=== PATIENT | male | born 1975 | race Caucasian/White ===

== ENCOUNTER 2017-12-24 14:42 | Inpatient (IN) | payer OTHER ==
[~2017-12-24] VITALS: Ht 180.3 cm; Wt 89.0 kg
--- NOTE | 2017-12-24 15:13 | ED PSYCHIATRIC COMPLAINT ---
History of Present Illness General Chief Complaint: Psychiatric Related Complaint Stated Complaint: BIBA +SI Source: patient, old records Exam Limitations: no limitations Vital Signs & Intake/Output Vital Signs & Intake/Output Vital Signs Date Time Temp Pulse Resp B/P B/P Pulse O2 O2 Flow FiO2 Mean Ox Delivery Rate 12/24 1821 98.4 86 18 138/74 100 Room Air 12/24 1518 98.8 72 18 142/93 100 Room Air Allergies Coded Allergies: NO KNOWN ALLERGIES (01/19/12) Reconcile Medications No Known Home Medications Triage Nurses Notes Reviewed? yes Onset: Gradual Duration: week(s):, intermittent Timing: recent history Severity: moderate Severity Numbers: 10 Associated Symptoms: suicidal ideation HPI: 42-year-old male with no medical history presents on PEER brought in by ambulance after his called 911 today after he told her that he was having thoughts of wanting to harm himself. Patient states that he's been under increased stress at home secondary to his marital problems with his 's previous drug use. He states that he has been going to therapy which has been helping however the thoughts of wanting to harm himself or becoming more frequent. He denies HI. Patient states several years ago he had an adverse reaction which she believes was 2 Xanax at which time he found himself holding a knife in the bathroom and was going to hurt himself. He is not currently on any medications at this time he denies any alcohol use or other drug use. He otherwise has no complaints at this time (Wilian Wheatley) Past History Medical History Any Pertinent Medical History? none Surgical History Surgical History: none Psychosocial History What is your primary language Yoruba Tobacco Use: Current Daily Use Family History Hx Contributory? No (Wilian Wheatley) Review of Systems Review of Systems Constitutional: Reports: see HPI. Comments Review of systems: See HPI, All other systems negative. Constitutional, no chills no fever, HEENT: no sore throat no congestion Cardiovascular: No chest pain Skin: no rashes, no change in skin Respiratory: No dyspnea no cough no sputum GI: No nausea no vomiting Muscle skeletal: No joint pain, no back pain, no neck pain, Neurologic: , no headache Psych: stress Heme/endocrine: No bruising (Wilian Wheatley) Physical Exam Physical Exam General Appearance: well developed/nourished, no apparent distress, alert Neurological/Psychiatric: no motor/sensory deficits, awake, alert, normal mood/ affect, calm Comments: Well-developed well-nourished person in no acute distress HEENT: Normal EENT exam; PERRL, EOMI,HEAD is atraumatic. moist mucous membranes. Neck: Supple, normal range of motion Back: Full range of motion Cardiovascular: Regular rate and rhythms no murmur Respiratory: No respiratory distress. Patient speaking in full complete sentences. Breath sounds clear to auscultation bilaterally: NO W/R/R Extremity: No edema, full range of motion of extremities Neuro: Alert oriented x3, motor sensory normal, There were no obvious focal neurologic abnormalities. Skin: No appreciable rash on exposed skin, skin is warm and dry. Psych: Mood and affect is normal, memory and judgment is normal. SAD PERSONS SAD PERSONS Response Value Male Sex? yes 1 Depression/Hopelessness? yes 2 Social Support? has no support 1 Total 4 SAD PERSONS Done? yes (Julio César LAUREN,Wilian) Progress Differential Diagnosis: drug intoxication, electrolyte abnormality, DEPRESSION ANXIETY DISORDER Plan of Care: Orders Procedure Date/time Status Regular Diet 12/25 B Active Admit to inpatient psych 12/24 1826 Active Lab Add-on Test 12/24 1821 Active Patient Data - inpatient psych 12/24 1818 Active Admit to inpatient psych 12/24 1818 Active ED CRISIS PSYCH CONSULT 12/24 1549 Active TSH REFLEX 12/24 1526 Active LIPID PANEL 12/24 1526 Active GLYCOSYLATED HGB 12/24 1526 Active FREE T4 12/24 1526 Active Intake & Output 12/24 1520 Active Continuous Observation Monitor 12/24 1502 Active URINE DRUG SCREEN FOR ER ONLY 12/24 1502 Complete ETHANOL 12/24 1502 Active COMPREHENSIVE METABOLIC PANEL 12/24 1502 Active CBC WITHOUT DIFFERENTIAL 12/24 1502 Complete Vital Signs 12/24 UNK Active Nursing Misc 12/24 UNK Active Alternative Nursing Therapy 12/24 UNK Active Activity/Ambulation 12/24 UNK Active Current Medications Sig/Mellisa Start time Last Medication Dose Stop Time Status Admin Acetaminophen 650 MG Q6P PRN 12/24 1830 UNVr (Tylenol) Al Hydroxide/Mg 30 ML Q4-6 PRN PRN 12/24 1830 AC Hydroxide (Maalox Plus) Benztropine Mesylate 1 MG Q6P PRN 12/24 1829 UNVr (Cogentin 1 MG Tablet) Benztropine Mesylate 1 MG Q6P PRN 12/24 1829 UNVr (Cogentin) Gabapentin 300 MG Q6P PRN 12/24 1829 UNVr (Neurontin) Haloperidol 5 MG Q6P PRN 12/24 1829 AC (Haldol) Haloperidol 5 MG Q6P PRN 12/24 1829 AC (Haldol) Lorazepam 2 MG Q6P PRN 12/24 1829 AC (Ativan) Magnesium Hydroxide 30 ML AT BEDTIME PRN 12/24 1829 AC (Milk Of Magnesia) Nicotine 2 MG Q2P PRN 12/24 1829 AC (Nicotine) Trazodone HCl 50 MG AT BEDTIME NEED.. 12/24 1829 AC (Desyrel) Laboratory Tests 12/24/17 1526: Anion Gap 13, Estimated GFR > 60, BUN/Creatinine Ratio 12.2, Glucose 99, Hemoglobin A1c Pending, Calcium 9.5, Total Bilirubin 0.5, AST 22, ALT 31, Alkaline Phosphatase 82, Total Protein 7.2, Albumin 4.6, Globulin 2.6, Albumin/ Globulin Ratio 1.8, Triglycerides 370 H, Cholesterol 245 H, LDL Cholesterol, Calc 145 H, HDL Cholesterol 26 L, Cholesterol/HDL Ratio 9 H, Free T4 Pending, TSH &T3 &Free T4 Intrp 4.500 H, CBC w Diff NO MAN DIFF REQ, RBC 5.43, MCV 82.6, MCH 28.3, MCHC 34.2, RDW 13.5, MPV 8.3, Gran % 54.1, Lymphocytes % 37.8, Monocytes % 5.6, Eosinophils % 2.0, Basophils % 0.5, Absolute Granulocytes 4.9, Absolute Lymphocytes 3.4, Absolute Monocytes 0.5, Absolute Eosinophils 0.2, Absolute Basophils 0, Serum Alcohol < 10.0 12/24/17 1515: Urine Opiates Screen < 100, Methadone Screen < 40, Barbiturate Screen < 60, Ur Phencyclidine Scrn < 6.00, Amphetamines Screen < 100, U Benzodiazepines Scrn < 85, Urine Cocaine Screen < 50, Urine Cannabis Screen < 5.00 Labs ordered patient calm cooperative at this time (Wilian Wheatley) Departure Departure Time of Disposition: 1845 Disposition: STILL A PATIENT Condition: Stable Referrals: Lilian LEON,Charly Rousseau (PCP/Family) Additional Instructions: Follow up with your pyschiatrist. return with any concerns Departure Forms: Customer Survey General Discharge Information Prescriptions: Current Visit Scripts No Known Home Medications Psych Admission Note Psychiatric Admission: I have seen and evaluated CRISTINA SUAREZ. I have also reviewed all the pertinent lab results and diagnostic results. CRISTINA SUAREZ will be admitted to our inpatient Psychiatric unit for treatment and care. (Wilian Wheatley) Departure Clinical Impression Primary Impression: Suicidal ideation Secondary Impressions: Anxiety disorder Psych Admission Note Psychiatric Admission: I have seen and evaluated CRISTINA SUAREZ. I have also reviewed all the pertinent lab results and diagnostic results. CRISTINA SUAREZ will be admitted to our inpatient Psychiatric unit for treatment and care. PA/CRM SPECIALIST Co-Sign Statement Statement: ED Attending supervision documentation- [X] I saw and evaluated the patient. I have also reviewed all the pertinent lab results and diagnostic results. I agree with the findings and the plan of care as documented in the PA's/CRM SPECIALIST's documentation. [X] I have reviewed the ED Record and agree with the PA's/CRM SPECIALIST's documentation. [] Additions or exceptions (if any) to the PAs/CRM SPECIALIST's note and plan are summarized below: [Patient to be admitted to inpatient psychiatry for suicidal ideations. Patient will need medical judgment and continued counseling and close observation.] (Ren LEON,Erasmo Polanco)
[2017-12-24 15:37] LABS: ABSOLUTE BASOPHIL COUNT 0 /CUMM (0.0-0.2); ABSOLUTE EOSINOPHIL COUNT 0.2 /CUMM (0.0-0.7); ABSOLUTE GRANULOCYTE CT 4.9 /CUMM (1.4-6.5); ABSOLUTE LYMPH COUNT 3.4 /CUMM (1.2-3.4); ABSOLUTE MONOCYTE COUNT 0.5 /CUMM (0.10-0.60); BASOPHIL % 0.5 % (0.0-2.0); GRANULOCYTE % 54.1 % (42.2-75.2); HEMATOCRIT 44.9 % (42-52); MEAN CORPUSCULAR HGB 28.3 PG (27.0-31.0); MEAN CORPUSCULAR HGB CONC 34.2 G/DL (33.0-37.0); MEAN CORPUSCULAR VOLUME 82.6 FL (80.0-94.0); MEAN PLATELET VOLUME 8.3 FL (7.4-10.4); PLATELET COUNT 222 /CUMM (130-400); RBC DISTRIBUTION WIDTH 13.5 % (11.5-14.5); RED BLOOD CELL CT 5.43 /CUMM (4.70-6.10)
--- NOTE | 2017-12-24 20:01 | ED PSYCH CRISIS CONSULTATION ---
See Addendum Crisis Consult Basic Assessment Date of Consult: 12/24/17 Responsible Person/Accompanied By: came in on a PEER Insurance Authorization: Insurance #1: Insurance name: Jerrod Young) Phone number: Policy number: [id number] Group number: Authorization number: ED Provider: Patient's ED Provider: Wilian Wheatley Primary Care Physician: Patient's PCP: Charly Quintana MD PCP's Chief Complaint: Psychiatric Related Complaint Patient's Quote: "I'm having marital issues, and mywifecalled" Present Illness: Pt is a 42 year old male arriving to ER after his called the police because he was making suicidal comments. He arrived on a PEER, it states "pt is having thoughts about harming himself due to conflict with his and is requesting to go to hospital". Pt has never been admitted to a psychiatric hospital. He does have an individual therapist Dr. Rodriguez in [place], and he and his are currently in marital counselling. All of this has not helped with feeling suicide would be an option to "relieve the pain", he reports he feels depressed and anxious. He feels the trigger for today's event was a conversation about their 13 year old daughter with social anxiety. He states 5 years ago he was prescribed chantix, and stated he began having suicidal thoughts then, this was the only other time he felt this way, and he stopped taking the medicine. Pt states "I need a break, I'm having a hard time concentrating, I've been talking about this with a lot of people and I still feel alone". When I spoke to his , who arrived to bring him belongings she states I'm fearful he will hurt himself, he told me not to let him be alone, that he has no purpose". She remains supportive. Pt denies drug and etoh abuse and is not prescribed any medications. Patient's Address: [address] [place] [address] [place] [address] Other Phone Number: Who Do You Live With? Family Family/Informants Interviewed: is concerned fearful due to pt making si comments. Allergies - Coded Allergies: NO KNOWN ALLERGIES (06/11/12) Current Medications - No Known Home Medications Laboratory Results: Laboratory Tests 12/24/17 1526: Anion Gap 13, Estimated GFR > 60, BUN/Creatinine Ratio 12.2, Glucose 99, Hemoglobin A1c Pending, Calcium 9.5, Total Bilirubin 0.5, AST 22, ALT 31, Alkaline Phosphatase 82, Total Protein 7.2, Albumin 4.6, Globulin 2.6, Albumin/ Globulin Ratio 1.8, Triglycerides 370 H, Cholesterol 245 H, LDL Cholesterol, Calc 145 H, HDL Cholesterol 26 L, Cholesterol/HDL Ratio 9 H, Free T4 0.94, Total T3 Pending, TSH &T3 &Free T4 Intrp 4.500 H, CBC w Diff NO MAN DIFF REQ, RBC 5.43, MCV 82.6, MCH 28.3, MCHC 34.2, RDW 13.5, MPV 8.3, Gran % 54.1, Lymphocytes % 37.8, Monocytes % 5.6, Eosinophils % 2.0, Basophils % 0.5, Absolute Granulocytes 4.9, Absolute Lymphocytes 3.4, Absolute Monocytes 0.5, Absolute Eosinophils 0.2, Absolute Basophils 0, Serum Alcohol < 10.0 12/24/17 1515: Urine Opiates Screen < 100, Methadone Screen < 40, Barbiturate Screen < 60, Ur Phencyclidine Scrn < 6.00, Amphetamines Screen < 100, U Benzodiazepines Scrn < 85, Urine Cocaine Screen < 50, Urine Cannabis Screen < 5.00 Past History Past Medical History Neurological: NONE EENT: NONE Cardiovascular: NONE Respiratory: NONE Gastrointestinal: NONE Hepatic: NONE Renal: NONE Musculoskeletal: NONE Psychiatric: NONE Endocrine: NONE Past Surgical History Surgical History: 1 Psychosocial History Strengths/Capabilities: employed, in treatment voluntarily looking for help Physical Limitations (Interventions): unk Psychiatric Treatment History Psych Treatment Psychiatric Treatment Yes Inpatient Treatment No Outpatient Treatment Yes Location of Treatment Dr. Michael wagner Reason for Treatment depression/anxiety Dates of Treatment currently Response to Treatment goes twice a week Diagnosis by History: unk Substance Use/Abuse History Drug Use/Abuse Substances Used/Abused No Substance Abuse Treatment Substance Abuse Treatment Past Substance Abuse [place] No Current Mental Status Mental Status Orientation: Person, Place, Situation Affect: Anxious, Depressed, Hopeless, Lonely, Sad Speech: WNL Neuro-vegetative: Concentration Poor, Helpless, Loss of Interest Appearance Appearance- Dress/Hygiene: appropriate Behaviors Thought Process: WNL Thought Content: WNL Memory: WNL Insight: Fair SI/HI Risk Assessment Past Suicidal Ideation/Attempts Yes Current Suicidal Ideation/Att Yes Past Homicidal Ideation/Att: No Current Homicidal Ideation/Attempts No Degree of Intent: Thoughts/No Intent Danger To: Self Gravely Disabled: Lack of Insight, Poor Impulse Control Risk Factors: high anxiety/distress, history of Violence, poor impulse control, male Lethality Ratin PTSD Checklist PTSD Done? patient declined ED Management Sitter: Yes Restraints: No DSM5/PS Stressors/Medical Prob Diagnosis' (DSM 5, Stressors, Medical): MDD single episode Moderate F32.1 Unspecified Anxiety D/O F41.9 marital conflict Current GAF: 28 Departure Disposition Psych Medical Clearance Date: 12/24/17 Medically Cleared at: 1700 Time Started: 1700 Time Ended: 1800 Psychiatrist Consulted: Zheng Lawrence MD Date Disposition Established: 12/24/17 Time Disposition Established: 1800 Plan for Disposition - Modality: Inpatient Psychiatry Facility: [facility] Follow-up Appt Date: 12/24/17 Follow-Up Appt Time: 1800 Rationale for Disposition: Consulted with Dr. Lawrence. pt is presenting on a PEER for making suicidal comments, can not contract for safety at home , hopeless and fearful of being alone. Pt signs in voluntarily to CPS. Type of IP Admission: Voluntary Referrals Lilian LEON,Charly Rousseau (PCP/Family)
--- NOTE | 2017-12-24 20:04 | IP CRISIS DIAG ASSESS PSYCH ---
Diagnostic Assessment Basic Assessment Insurance Authorization: Insurance #1: Insurance name: JORDY LAWRENCE Phone number: Policy number: [id number] Group number: [id number] Authorization number: Primary Care Physician: Patient's PCP: Charly Quintana MD PCP's Patient's Quote: "I'm having marital issues, and my called" Present Illness: Pt is a 42 year old male arriving to ER after his called the police because he was making suicidal comments. He arrived on a PEER, it states "pt is having thoughts about harming himself due to conflict with his and is requesting to go to hospital". Pt has never been admitted to a psychiatric hospital. He does have an individual therapist Dr. Rodirguez in [place], and he and his are currently in marital counselling. All of this has not helped with feeling suicide would be an option to "relieve the pain", he reports he feels depressed and anxious. He feels the trigger for today's event was a conversation about their 13 year old daughter with social anxiety. He states 5 years ago he was prescribed chantix, and stated he began having suicidal thoughts then, this was the only other time he felt this way, and he stopped taking the medicine. Pt states "I need a break, I'm having a hard time concentrating, I've been talking about this with a lot of people and I still feel alone". When I spoke to his , who arrived to bring him belongings she states I'm fearful he will hurt himself, he told me not to let him be alone, that he has no purpose". She remains supportive. Pt denies drug and etoh abuse and is not prescribed any medications. Patient's Address: [address] [place] [address] [place] [address] Other Phone Number: Who Do You Live With? Family Feel Safe Where You Live? Yes Feel Safe in Your Relationship No If No, Please Elaborate: its dysfunctional, poor communication style Marital Status: Do You Have Children? Yes Ages? 13 Primary Language? Ukrainian Family/Informants Interviewed: is concerned fearful due to pt making si comments. Allergies - Coded Allergies: NO KNOWN ALLERGIES (01/19/12) Current Medications - No Known Home Medications Lab Results: Laboratory Tests 12/24/17 1526: Anion Gap 13, Estimated GFR > 60, BUN/Creatinine Ratio 12.2, Glucose 99, Hemoglobin A1c Pending, Calcium 9.5, Total Bilirubin 0.5, AST 22, ALT 31, Alkaline Phosphatase 82, Total Protein 7.2, Albumin 4.6, Globulin 2.6, Albumin/ Globulin Ratio 1.8, Triglycerides 370 H, Cholesterol 245 H, LDL Cholesterol, Calc 145 H, HDL Cholesterol 26 L, Cholesterol/HDL Ratio 9 H, Free T4 0.94, Total T3 1.61, TSH &T3 &Free T4 Intrp 4.500 H, CBC w Diff NO MAN DIFF REQ, RBC 5.43, MCV 82.6, MCH 28.3, MCHC 34.2, RDW 13.5, MPV 8.3, Gran % 54.1, Lymphocytes % 37.8, Monocytes % 5.6, Eosinophils % 2.0, Basophils % 0.5, Absolute Granulocytes 4.9, Absolute Lymphocytes 3.4, Absolute Monocytes 0.5, Absolute Eosinophils 0.2, Absolute Basophils 0, Serum Alcohol < 10.0 12/24/17 1515: Urine Opiates Screen < 100, Methadone Screen < 40, Barbiturate Screen < 60, Ur Phencyclidine Scrn < 6.00, Amphetamines Screen < 100, U Benzodiazepines Scrn < 85, Urine Cocaine Screen < 50, Urine Cannabis Screen < 5.00 Toxicology Screen Completed? Yes Results: negative Past History Abuse/Trauma History Trauma History/Current Trauma: Denies Legal History Current Legal Status: none Psychosocial History Strengths/Capabilities: employed, in treatment voluntarily looking for help Physical Limitations (Interventions): unk Psychiatric Treatment History Psych Treatment Psychiatric Treatment Yes Inpatient Treatment No Outpatient Treatment Yes Location of Treatment Dr. Michael wagner Reason for Treatment depression/anxiety Dates of Treatment currently Response to Treatment goes twice a week Diagnosis by History: unk Risk Factors: high anxiety/distress, history of Violence, poor impulse control, male Substance Use/Abuse History Drug Use/Abuse minimum 12mo Hx Substances Used/Abused No Substance Abuse Treatment Substance Abuse Treatment Past Substance Abuse [place] No Sexual History Sexually Active Yes # of partners 1 Sexual Orientation Heterosexual Use of Protection No Education History Highest Level of Education: bachelor's degree Preferred Learning Style: experiential Current Mental Status Mental Status Orientation: Person, Place, Situation Affect: Anxious, Depressed, Hopeless, Lonely, Sad Speech: WNL Neuro-vegetative: Concentration Poor, Helpless, Loss of Interest Appearance Appearance- Dress/Hygiene: appropriate Behaviors Thought Process: WNL Thought Content: WNL Memory: WNL Insight: Fair SI/HI Risk Assessment - Minimum 6mo History- Past Suicidal Ideation/Attempts Yes Current Suicidal Ideation/Att Yes Past Homicidal Ideation/Att: No Current Homicidal Ideation/Attempts No Degree of Intent: Thoughts/No Intent Danger To: Self Gravely Disabled: Lack of Insight, Poor Impulse Control Risk Factors: high anxiety/distress, history of Violence, poor impulse control, male Lethality Ratin Needs/Init [place] Plan/Goals: Safety monitoring Inpatient milieu Individual and Group Treatment AUDIT-C Questionnaire: AUDIT-C Questionnaire: Response Value ETOH use in the past year Monthly or less 1 # drinks typical/day Doesn't Drink 0 6 or > drinks per occasion Less than monthly 1 Total 2 DSM5/PS Stressors/Medical Prob Diagnosis' (DSM 5, Stressors, Medical): MDD single episode Moderate F32.1 Unspecified Anxiety D/O F41.9 marital conflict Current GAF: 28
[2017-12-24 20:28] VITALS: BP 151/87
[2017-12-24] MEDS ORDERED: FLONASE ALLERG9.9 ML NAS (21:28)
[2017-12-25 07:37] VITALS: BP 116/67
--- NOTE | 2017-12-25 10:39 | History & Physical ---
General Information and HPI MD Statement: I have seen and personally examined CRISTINA SUAREZ and documented this H&P. The patient is a 42 year old M who presented with a patient stated chief complaint of "I'm having marital issues and my called". Source of Information: patient, family Exam Limitations: no limitations History of Present Illness: 42-year-old white male brought in by ambulance suicidal ideations, presents on PEER after his called 911 when the patient told her he was having thoughts of wanting to hurt himself and his increased stress at home with the is going to therapy noted that the suicidal ideations have increased in frequency of medications denies alcohol or drug abuse Allergies/Medications Allergies: Coded Allergies: morphine (Severe, GI DISTRESS 12/24/17) shrimp (Severe, GI DISTRESS 12/24/17) Home Med list Fluticasone Propionate (Flonase Allergy Relief) 50 MCG/ACTUATION SPRAY.SUSP 2 SPRAY MERVAT BID ALLERGIES (Reported) TWO SPRAYS IN AM, ONE SPRAY IN EVENING Compliance With Home Meds: UNKNOWN Past History Travel History Traveled to [place] past 21 day No Medical History Neurological: NONE EENT: allergies Cardiovascular: hyperlipidemia Respiratory: SMOKER Gastrointestinal: NONE Hepatic: NONE Renal: NONE Musculoskeletal: chronic back pain, disk herniation, psoariatic arthritis Psychiatric: depression Endocrine: NONE Blood Disorders: NONE Cancer(s): NONE GROCERY STORE BAGGER/Reproductive: NONE History of MRSA: No History of VRE: No History of CDIFF: No Isolation History: Standard Surgical History Surgical History: none Past Family/Social History Psychosocial History Where do you live? Home ETOH Use: denies use Illicit Drug Use: denies illicit drug use Review of Systems Review of Systems Constitutional: Reports: see HPI. Exam & Diagnostic Data Last 24 Hrs of Vital Signs/I&O Vital Signs Date Time Temp Pulse Resp B/P B/P Pulse O2 O2 Flow FiO2 Mean Ox Delivery Rate 12/25 0737 97.2 68 116/67 12/25 2027 97.9 60 151/87 12/24 1821 98.4 86 18 138/74 100 Room Air 12/24 1518 98.8 72 18 142/93 100 Room Air Intake & Output 12/25 1600 12/25 0800 12/25 0000 Intake Total Output Total Balance Patient 196 lb Weight Physical Exam General Appearance Alert, Oriented X3, Cooperative, No Acute Distress Skin No Rashes, No Breakdown, No Significant Lesion HEENT PERRLA, EOMI, Mucous Membr. moist/pink Neck Supple, No JVD, No thryomegaly, +2 Carotid Pulse wo Bruit, No LAD Lymphatic Axillary nl, Cervical nl Cardiovascular Regular Rate, No Murmurs Lungs Clear to Auscultation, Normal Air Movement Abdomen Soft, No Tenderness, No Hepatospenomegaly, No Masses Neurological Exam Findings: Normal Gait, Normal Speech, Strength at 5/5 X4 Ext, Normal Tone, Sensation Intact, Cranial Nerves 3-12 NL, Reflexes 2+ Cranial Nerves II through XII: Intact Extremities No Cyanosis, No Edema, Normal Pulses, No Tenderness/Swelling Vascular Normal Pulses, Pulses Symmetrical Last 24 Hrs of Labs/Jordan: Laboratory Tests 12/24/17 1526: Anion Gap 13, Estimated GFR > 60, BUN/Creatinine Ratio 12.2, Glucose 99, Hemoglobin A1c 5.6, Calcium 9.5, Total Bilirubin 0.5, AST 22, ALT 31, Alkaline Phosphatase 82, Total Protein 7.2, Albumin 4.6, Globulin 2.6, Albumin/Globulin Ratio 1.8, Triglycerides 370 H, Cholesterol 245 H, LDL Cholesterol, Calc 145 H, HDL Cholesterol 26 L, Cholesterol/HDL Ratio 9 H, Free T4 0.94, Total T3 1.61, TSH &T3 &Free T4 Intrp 4.500 H, CBC w Diff NO MAN DIFF REQ, RBC 5.43, MCV 82.6, MCH 28.3, MCHC 34.2, RDW 13.5, MPV 8.3, Gran % 54.1, Lymphocytes % 37.8, Monocytes % 5.6, Eosinophils % 2.0, Basophils % 0.5, Absolute Granulocytes 4.9, Absolute Lymphocytes 3.4, Absolute Monocytes 0.5, Absolute Eosinophils 0.2, Absolute Basophils 0, Serum Alcohol < 10.0 12/24/17 1515: Urine Opiates Screen < 100, Methadone Screen < 40, Barbiturate Screen < 60, Ur Phencyclidine Scrn < 6.00, Amphetamines Screen < 100, U Benzodiazepines Scrn < 85, Urine Cocaine Screen < 50, Urine Cannabis Screen < 5.00 Assessment/Plan As Ranked By This Provider Problem List: 1. Suicidal ideation 2. Anxiety disorder Miscellaneous Miscellaneous Documentation Attending Case Discussed With: Melinda LEONZheng Primary Care Physician: Charly Quintana MD Patient sees these Specialists Psychiatry Level of Patient Care: [place] Consults Needed: Consulting Specialty: Psychiatry Consulting Physician: Dr. Lawrence Reason for Consult: suicidal ideations anxiety
[2017-12-25 12:21] VITALS: BP 140/82
--- NOTE | 2017-12-25 13:45 | SOCIAL WORKER SOCIAL HX PSYCH ---
Social History Basic Assessment Insurance Authorization: Insurance #1: Insurance name: JORDY LAWRENCE Phone number: Policy number: [id number] Group number: [id number] Authorization number: Curr Source of Income/Entitlements: employment Primary Care Physician: Patient's PCP: Charly Quintana MD PCP's Primary Language? Czech Language(s) Spoken At Home: Czech, [facility] Living Situation Rents or Owns Home? owns Feel Safe Where You Are Living Yes Feel Safe in Relationships? Yes Allergies - Coded Allergies: morphine (Severe, GI DISTRESS 12/24/17) shrimp (Severe, GI DISTRESS 12/24/17) Current Medications - Scheduled Medications Fluticasone Propionate (Flonase Allergy Relief) 50 MCG/ACTUATION SPRAY.SUSP 2 SPRAY MERVAT BID ALLERGIES (Reported) Entered as Reported by Joselin Trammell on 12/24/172127 Consequences of Psych Med Use: no history Past History Past Medical History Neurological: NONE EENT: allergies Cardiovascular: hyperlipidemia Respiratory: SMOKER Gastrointestinal: NONE Hepatic: NONE Renal: NONE Musculoskeletal: chronic back pain, disk herniation, psoariatic arthritis Psychiatric: depression Endocrine: NONE Blood Disorders: NONE Cancer(s): NONE BOX PRINTER/Reproductive: NONE Past Surgical History Surgical History: none /Family History Place/Country of Origin: [facility] Childhood Family Constellation: mother, father, younger brother (and grandparents close by). Primary Childhood Caretakers: mother, step-parent, sibling(s), grandparent(s) Family Life During Childhood: grandfather drank mother was someone who kept drilling us verbally every day on what we needed to do. Sometimes angry extended family lived close by. Often patient reports he was home by himself. DCF Involvement? No Mother's Age (Current/): 67 Relationship w/Mother: somewhat strained, but good Father's Age (Current/): 68 Relationship w/Father: pretty good Any Sibling(s)? Yes Sibling's Gender(s)/Age(s): male Sibling 1: (younger brother) Relationship w/Sibling(s): get along well with brother. Relationship w/Friends: had good friends Family Psych/Sub Abuse/Add Hx: drug of choice (alcohol) Abuse/Trauma History Trauma History/Current Trauma: Denies Legal History Legal Guardian/Address/Phone: none Current Legal Status: none Hx of Adult Legal Charges? No Psychosocial History Primary Support System: , friend Strengths/Capabilities: employed, in treatment voluntarily looking for help intelligent, disciplined Weaknesses: having much anxiety feels pressured Physical Limitations (Interventions): psoriatic arthritis Last Physical: 2018 History of Seizures? No History of Blackouts? No ADL Limitations: none [place]/Social/Peer Relations patient reports that he has a number of friends, but would not talk to them about his personal problem. He feels their advice would not be relevant Meaningful Activities: work. Childhood Sabianism: Nondenominational Current Scientologist Affiliation: Nondenominational Is Spirituality Important to You? yes Patient's Ethnicity: [facility] Cultural/Ethnic Issues: [place] 18 to go to school. Went to [employer] [facility] [employer] in [place], [place] Are There Developmental Issues? No Milestones Achieved: WNL Psychiatric Treatment History Psych Treatment Inpatient Treatment No Outpatient Treatment Yes Location of Treatment Dr. Michael wagner Reason for Treatment depression/anxiety Dates of Treatment currently Response to Treatment goes twice a week Precipitating Factors: marital issues and anxiety and depression Current Import Customs Clearing Agent: Dr. Rodriguez Treatment of Prior Episodes: Pt had seen Dr Olivarez previously a number of years prior to Dr Rodriguez. Diagnosis: unk Psychodynamic Issues: Patient has had strained relationship with , and stress in helping raise step-children. Patient reports that he has had to be discipinarian, and was very opposite. also had alcohol and substance problems and relapses. Also, family did not approve of , who was older. Risk Factors: access to lethal means, high anxiety/distress, history of Violence , poor impulse control, male Substance Use/Abuse History Drug Use/Abuse:Min 12 mo hx Substance Used/Abused No History Substance Abuse Treatment Substance Abuse Treatment Inpatient Treatment No Sexual History Sexually Active Yes # of partners 1 Sexual Orientation Heterosexual Use of Protection No Sexual Concerns: none Education History Highest Level of Education: bachelor's degree Highest Grade Completed: post grad work at [employer], but did not compet Vocational Year Completed: eeeeeeeeeeeeeeeeeeeeeeeee Number of College Years: 4 College Degree/Major: philosophy Other Degree(s): worked on [employer] degree Preferred Learning Style: experiential HX of Learning Difficulties: None reported Barriers to Learning: None reported Employment History Employment Employed Vocation/Occupational Hx: Contracto self-employed No. of Jobs in Last 5 Years: 1 Attendance: Above average Performance: Good Comments: patient works long hours works hard History Have You Been in The ? No Current Mental Status Mental Status Orientation: Person, Place, Situation Affect: Anxious, Depressed, Hopeless, Lonely, Sad Speech: WNL Neuro-vegetative: Concentration Poor, Helpless, Loss of Interest Appearance Appearance- Dress/Hygiene: appropriate Behaviors Thought Process: WNL Thought Content: WNL Memory: WNL Insight: Fair SI/HI Risk Assessment Past Suicidal Ideation/Attempts Yes Current Suicidal Ideation/Att Yes Past Homicidal Ideation/Att: No Current Homicidal Ideation/Attempts No Degree of Intent: Thoughts/No Intent Danger To: Self Gravely Disabled: Lack of Insight, Poor Impulse Control Risk Factors: Access to lethal weapons, High Anxiety/Distress, Male Lethality Ratin - Conclusion and Recommendations for treatment - and discharge planning Summary: Patient reports that suicide is abhorrant to him as a Nondenominational, but he is worried due to actually having thoughts about driving off road.
[2017-12-25 16:14] VITALS: BP 141/87
--- NOTE | 2017-12-25 16:45 | SOCIAL WORKER PROG NOTE PSYCH ---
Social Work Progress Note Progress Note Kavon reports having no previous hospitalizations. He has recently started therapy with Dr. Rodriguez about 3 weeks ago and marriage counseling a couple weeks ago as well. He reports his called 911 and sent him to the hospital because he was making suicidal comments. He denies wanting to kill himself and states it's againsy his zoroastrian and what he believes in. He admitted to feeling scared and more anxious recently and that suicide had crossed his mind, but there was no intent to ever act on it. He says despite how he got here, he is now glad he is here for help. He is willing to try some medication to help with his anxiety. He talked for about an hour giving me some history about his marriage and family dynamics. He reports that his is an addict and that she is reportedly working on maintaining her sobriety right now. He is not sure what to trust as she has said this before. She has had problems with prescription pills and alcohol. He said "I feel like her keeper." He talks about how they have lost the ability to function as a couple and he isn't sure what do right now. He said he would like to work on things and go to therapy if the goal is to stay together, but he doesn't think they should do therapy if that's not the goal. He is open to seperating if that is what is needed at this time. He reports there have been stressors for many years, particularly regarding his step children and parenting with his 13 year old daughter. The step children are grown and out of the house now. He shared some stories in detail about the troubles he had with his 's kids. He works as a contractor multimedia coordinator and works alot. He doesn't want to be here long, because he needs to get back to work as soon as possible. I told him that I didn't think he would be here long and that I'd like to have his in for a family meeting if possible. He said he would like to talk to her first before me calling her.
--- NOTE | 2017-12-25 16:58 | SOCIAL WORKER PROG NOTE PSYCH ---
Social Work Progress Note Progress Note Auth for Kavon Loo #[id number] 4 days review on 12/28/17
--- NOTE | 2017-12-25 17:05 | CPS PROVIDER INIT ASMT PSYCH ---
Psychiatric Admission Neuro Ophthalmologist's Note Reviewed: Yes Patient Seen and Examined: Yes (Patient seen w/Kenrick Jer.) Identifying Information: 42 yo MWM German immigrant, admitted on 12/24/17 on a voluntary basis, referred by ER. Chief Complaint: Voiced suicidal ideation. Reaction to Hospitalization: "It's good." History of Present Illness Onset of Illness: Reports onset is tied to "marital fallout" in early November 2017. Circumstances Leading to Admission: called 911. "A bit pissed because she did it for the wrong reason. My anxiety got way out of control" x 1 month. Reports relationship issues with . States ""there is absolutely no trust. Every person thinks there is a hidden agenda." Pt had been away for 1 month on a business trip prior to "fallout" with in early 2017 around [facility]. Reports daughter is sensitive and has social anxiety. She changed her mind about a birthday present and was afraid to tell the patient, so patient confronted daughter. Although patient spoke with about SI, states he wouldn't have acted on it because of rastafarian beliefs. Started therapy with Rebekah Rodriguez, PhD a couple of weeks ago. Problem(s) Justifying Need for Admission: Voiced SI. Other HPI: Sleep: okay, keeps to a routine. Appetite: better the last few days. It was bad for 2 weeks. Weight: lost 35# since early October, the 28# were intentional. Energy: fairly high. Case and treatment plan discussed in team meeting. Staff reports that the patient is denying SI. Feeling less anxious today. Doing a lot of journaling. Past Psychiatric History Past Diagnosis(es)- if any: Unknown. Past Precipitating Factors- if any: Chantix led to cutting in the past. - Include inpatient and outpatient treatment Treatment History: Dr. Rodriguez for OPTx x [address] Jordan ~ 5 years ago. Inpatient: none. History of Suicide Attempts or Gestures Cut self with a razor when on Chantix 5 years ago. Substance Abuse History: Tobacco went from 1 ppd to 2 ppd. Alcoho: social, ~1 drink/week. Heavier in college. Reports using medical MJ without a Rx, ~1/3 joint [id number]. No other drugs. Allergies: Coded Allergies: morphine (Severe, GI DISTRESS 12/24/17) shrimp (Severe, GI DISTRESS 12/24/17) Home Med List: Flonase. Topical lotion for psoriasis/with Vit D. Metotrexate in the past. - Include any medical condition(s) that may - impact the patient's recovery/remission Past Medical History: Psoriatic arthritis. R arthroscopic surgery for torn meniscus. 2 back surgeries, 1999, 2001, disc fusion. Septoplasty. Past History Medical History Neurological: NONE EENT: allergies Cardiovascular: hyperlipidemia Respiratory: SMOKER Gastrointestinal: NONE Hepatic: NONE Renal: NONE Musculoskeletal: chronic back pain, disk herniation, psoariatic arthritis Psychiatric: depression Endocrine: NONE Blood Disorders: NONE Cancer(s): NONE FOOD AIDE/Reproductive: NONE History of MRSA: No History of VRE: No History of CDIFF: No Isolation History: Standard Surgical History Surgical History: arthroscopy, 2 spine surgeries, septoplasty Psychiatric Family/Social Hx Family History Psychiatric Illness: Daughter: social anxiety. Substance Use: Reports is alcoholic in recovery. Suicides: Denied. Social History Living Situation: Lives with and daughter. Significant Relationships (family/friends): . Daughter, age 13. All other family, parents, 35 yo brother, are in the [facility]. Has 2 adult step-children, 26 and 24 yo. Education: Studied at [employer]: [employer] in [place]. 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 Legal: None, as I recall. Healthly Behaviors Screening Tobacco Screening Tobacco Use from ED Docu: Current Daily Use Daily Tobacco Use Amount/Type: => 5 Cigarettes daily - If tobacco counseling indicated - the following topics are required. - #1 Recognizing dangerous situations. - #2 Coping Skills. - #3 Basic information about quitting. Status of Tobacco Cessation Counseling: #1, #2 AND #3 Completed Cessation Med Status Nicotine Patch Ordered Alcohol Screening - ETOH screen POS if BAL >=80 or Audit-C>= M4/F3 Audit-C Score from Diag Assess: 2 Blood Alcohol Level: Laboratory Tests 12/24 1526 Toxicology Serum Alcohol (<10 MG/DL) < 10.0 Alcohol Use Screening Results: Neg per Audit C &/or BAL - If ETOH counseling indicated - the following topics are required. - #1 Express concern about the patient's - drinking at unhealthy levels, include informing - of national norms for moderate drinking: - men <= 14 drinks/week, max 4 drinks/occasion - women <= 7 drinks/week, max 3 drinks/occasion - #2 Providing feedback, including linking alcohol to - negative physical effects (liver injury, hypertension) - negative emotional effects (relationship problems and - depression) - negative occupational consequences (reduced work - performance) - #3 Advising the patient to abstain from alcohol or - to drink below national norms for moderate drinking - (as listed above). Status of ETOH Use Counseling: N/A B/C NO ETOH Use Metabolic Screening - Screen if on a Neuroleptic Medication - Metabolic screening should include: - Blood Pressure, BMI, Glucose or Hgb A1c, & a - Lipid profile from within the past 365 days. Metabolic Screening ([x]) Not Applicable, patient not on a neuroleptic. OR () Patient on a neuroleptic(s) . Enter below results for Hemoglobin A1C, and lipid panel if obtained during the last 365 days. BMI: 27.300 Blood Pressure: 141/87 Laboratory Results From [facility] (If applicable): Exam and Plan Mental Status Examination Ambulation Status: Not seen. Patient seated at conference room table. Appearance: Casually dressed, unshaven, WM in NAD. Attitude towards examiner: Calm, polite and cooperative. Psychomotor activity: There is no psychomotor agitation or retardation. Behavior: Unremarkable. Quality of speech: Has an accent. Normal in volume, rate and tone. Affect: Calm and blunted. Mood: "Calm, but a bit confused." Sad 0/10. Anxiety 2/10. Denies feeling hopeless, helpless or worthless. Feels guilty about what may be the end result in his relationship. Worried about not getting the right solution. Suicidal Ideation: Denies active and passive SI. Homicidal Ideation: Denies HI. Hallucinations: Denies AH and VH. Paranoid/Delusional Material: Denies PI and magical goodwin. Difficulties with thought organization: None. Insight: Fair. Judgment: Was poor, but improving. Orientation: Ox3. Cognition: Grossly intact. Memory Function: Grossly intact. Estimate of intellectual functioning: Above average. Assets/Strengths Patient Identified Assets/Strengths: Planning things. Following plan. Adjusting when plan dosesn't work out. Impression/Plan Impression and Plan: The patient is here in the context of suicidal comment(s) at home. He has been in therapy for a few weeks. Past cutting while on Chantix. Stressors: relationship with , daughter's sensitivity, frequently is away from home on business. - Include all active medical diagnosis that require tx DSM 5 Diagnosis(es): Unspecified depression. - Initial Tx Plan for Active Psych & Medical Conditions Treatment Plan: The patient will be monitored on the unit for safety and mood disorder. Major risks/benefits of Lexapro were discussed with the patient, and he agreed to this medication. Patient was advised to avoid drugs and alcohol while on this medication. He was advised not to drive or operate heavy machinery if groggy from this medication. We will start Lexapro 10 mg daily. Additional information is needed from collaterals: and OPT. Anticipate once clinically stable, that the patient will be discharged to home and family and be referred to IOP. - Factors that would help patient function - in a less restrictive setting. Factors: Not suicidal.
[2017-12-25 19:41] VITALS: BP 140/85
[2017-12-26 07:55] VITALS: BP 120/79
--- NOTE | 2017-12-26 11:39 | CP SOUTH PROGRESS NOTE PSYCH ---
Psych (Inpt) Progress Note Progress Note Include the following elements, when applicable: Involvement in the active treatment of the patient with behavioral observations of the patient and the patient's response to the treatment. Review of the ongoing treatment process in the context of the treatment plan. Indication of how multi-disciplinary staff members are carrying out the treatment plan. Plans for future interventions and recommendations for revision of the treatment plan. Liaison with other physicians/providers. Progress Note: Pt notes that he is "OK" today. He spoke at length about very difficult relationship with (AUD) and hopes to keep his family together. Additional stressor is that he is breadwinner. He feels that has turned a corner as more able to reach out for help. Hopeful that will visit today. Denies SI or HI. Current Medications Sig/Mellisa Start time Last Medication Dose Route Stop Time Status Admin Acetaminophen 650 MG .STK-MED ONE 12/25 180 DC PO 12/25 1810 Acetaminophen 650 MG Q6P PRN 12/24 1830 AC 12/25 PO 1809 Al Hydroxide/Mg 30 ML Q4-6 PRN PRN 12/24 1830 AC Hydroxide PO Benztropine Mesylate 1 MG Q6P PRN 12/24 1830 AC PO Benztropine Mesylate 1 MG Q6P PRN 12/24 1830 AC IM Escitalopram Oxalate 10 MG 0800 12/25 1200 AC 12/26 PO 0752 Fluticasone 1 SPRAY BID 12/24 2200 AC 12/26 Propionate MERVAT 0752 Gabapentin 300 MG Q6P PRN 12/24 1830 AC 12/26 PO 1122 Haloperidol 5 MG Q6P PRN 12/24 1830 AC PO Haloperidol 5 MG Q6P PRN 12/24 1830 AC IM Lorazepam 2 MG Q6P PRN 12/24 1830 AC IM Magnesium Hydroxide 30 ML AT BEDTIME PRN 12/24 1830 AC PO Nicotine 2 MG Q2P PRN 12/26 1100 AC PO Nicotine 21 MG DAILY 12/25 1155 AC 12/26 TOP 0752 Nicotine 2 MG Q2P PRN 12/24 1830 DC 12/25 PO 0830 Trazodone HCl 50 MG AT BEDTIME NEED.. 12/24 1830 AC 12/25 PO 2109 Laboratory Tests 12/24 12/24 1526 1515 Chemistry Sodium (137 - 145 mmol/L) 142 Potassium (3.5 - 5.1 mmol/L) 4.2 Chloride (98 - 107 mmol/L) 104 Carbon Dioxide (22 - 30 mmol/L) 25 Anion Gap (5 - 16) 13 BUN (9 - 20 mg/dL) 11 Creatinine (0.7 - 1.2 mg/dL) 0.9 Estimated GFR (>60 ml/min) > 60 BUN/Creatinine Ratio (7 - 25 %) 12.2 Glucose (65 - 99 mg/dL) 99 Hemoglobin A1c (4.2 - 5.8 %) 5.6 Calcium (8.4 - 10.2 mg/dL) 9.5 Total Bilirubin (0.2 - 1.3 mg/dL) 0.5 AST (17 - 59 U/L) 22 ALT (21 - 72 U/L) 31 Alkaline Phosphatase (< 127 U/L) 82 Total Protein (6.3 - 8.2 g/dL) 7.2 Albumin (3.5 - 5.0 g/dL) 4.6 Globulin (1.9 - 4.2 gm/dL) 2.6 Albumin/Globulin Ratio (1.1 - 2.2 %) 1.8 Triglycerides (<150 mg/dL) 370 H Cholesterol (< 200 MG/DL) 245 H LDL Cholesterol, Calc (65 - 129 mg/dL) 145 H HDL Cholesterol (40 - 60 mg/dL) 26 L Cholesterol/HDL Ratio (0.00 - 4.88 %) 9 H Free T4 (0.64 - 1.79 ng/dL) 0.94 Total T3 (0.97 - 1.69 ng/mL) 1.61 TSH &T3 &Free T4 Intrp (0.27 - 4.20 uIU/mL) 4.500 H Hematology CBC w Diff NO MAN DIFF REQ WBC (4.8 - 10.8 /CUMM) 9.0 RBC (4.70 - 6.10 /CUMM) 5.43 Hgb (14.0 - 18.0 G/DL) 15.4 Hct (42 - 52 %) 44.9 MCV (80.0 - 94.0 FL) 82.6 MCH (27.0 - 31.0 PG) 28.3 MCHC (33.0 - 37.0 G/DL) 34.2 RDW (11.5 - 14.5 %) 13.5 Plt Count (130 - 400 /CUMM) 222 MPV (7.4 - 10.4 FL) 8.3 Gran % (42.2 - 75.2 %) 54.1 Lymphocytes % (20.5 - 51.1 %) 37.8 Monocytes % (1.7 - 9.3 %) 5.6 Eosinophils % (0 - 5 %) 2.0 Basophils % (0.0 - 2.0 %) 0.5 Absolute Granulocytes (1.4 - 6.5 /CUMM) 4.9 Absolute Lymphocytes (1.2 - 3.4 /CUMM) 3.4 Absolute Monocytes (0.10 - 0.60 /CUMM) 0.5 Absolute Eosinophils (0.0 - 0.7 /CUMM) 0.2 Absolute Basophils (0.0 - 0.2 /CUMM) 0 Toxicology Urine Opiates Screen (>2000 NG/ML) < 100 Methadone Screen (>300 NG/ML) < 40 Barbiturate Screen (>200 NG/ML) < 60 Ur Phencyclidine Scrn (>25 NG/ML) < 6.00 Amphetamines Screen (>1000 NG/ML) < 100 U Benzodiazepines Scrn (>200 NG/ML) < 85 Urine Cocaine Screen (>300 NG/ML) < 50 Urine Cannabis Screen (>50 NG/ML) < 5.00 Serum Alcohol (<10 MG/DL) < 10.0 Vital Signs Date Time Temp Pulse Resp B/P B/P Pulse O2 O2 Flow FiO2 Mean Ox Delivery Rate 12/26 0755 97.8 70 120/79 12/25 1941 97.2 62 140/85 12/25 1614 61 141/87 12/25 1221 75 140/82 MSE General appearance: good hygiene and grooming; Attitude: cooperative; Eye contact: appropriate; Movement: no psychomotor agitation or slowing; Speech: nl fluency, nl rate/rhythm, nl volume, nl prosody; Mood: "OK" Affect: irritable, flat, appropriate, constricted, non-labile, congruent; Thought process: linear and goal-directed; Thought content: denied SI or HI, no paranoid ideation; Perception: denied hallucinations- auditory, visual, does not appear to be responding to internal stimuli; I/J: limited A/P: Pt with MDD with multiple psychosocial stressors contributing to depression and anxiety. -Continue current medication regimen -Encourage integration into the milieu
[2017-12-26 12:14] VITALS: BP 119/66
[2017-12-26 16:04] VITALS: BP 137/75
[2017-12-26 20:10] VITALS: BP 144/80
[2017-12-27 07:51] VITALS: BP 127/71
--- NOTE | 2017-12-27 11:22 | CP SOUTH PROGRESS NOTE PSYCH ---
Psych (Inpt) Progress Note Progress Note Include the following elements, when applicable: Involvement in the active treatment of the patient with behavioral observations of the patient and the patient's response to the treatment. Review of the ongoing treatment process in the context of the treatment plan. Indication of how multi-disciplinary staff members are carrying out the treatment plan. Plans for future interventions and recommendations for revision of the treatment plan. Liaison with other physicians/providers. Progress Note: Pt notes that visited by and daughter yesterday. Enjoyed the visit which was described as "peaceful." He notes that he and his have been getting along better over the past few days but he is still concerned about the relationship. He is hopeful that they will stay together but notes last 5 years have been very difficult. Denies SI or HI. Took gabapentin w/o oversedation yesterday. Current Medications Sig/Mellisa Start time Last Medication Dose Route Stop Time Status Admin Acetaminophen 650 MG .STK-MED ONE 12/264 DC PO 12/26 213 Acetaminophen 650 MG .STK-MED ONE 12/26 1857 DC PO 12/26 1858 Acetaminophen 650 MG Q6P PRN 12/24 1830 AC 12/26 PO 2134 Al Hydroxide/Mg 30 ML Q4-6 PRN PRN 12/24 1830 AC Hydroxide PO Benztropine Mesylate 1 MG Q6P PRN 12/24 1830 AC PO Benztropine Mesylate 1 MG Q6P PRN 12/24 1830 AC IM Escitalopram Oxalate 10 MG 0800 12/25 1200 AC 12/27 PO 0803 Fluticasone 1 SPRAY BID 12/24 2200 AC 12/27 Propionate MERVAT 0803 Gabapentin 300 MG Q6P PRN 12/24 1830 AC 12/26 PO 1122 Haloperidol 5 MG Q6P PRN 12/24 1830 AC PO Haloperidol 5 MG Q6P PRN 12/24 1830 AC IM Lorazepam 2 MG Q6P PRN 12/24 1830 AC IM Magnesium Hydroxide 30 ML AT BEDTIME PRN 12/24 1830 AC PO Nicotine 2 MG Q2P PRN 12/26 1100 AC 12/26 PO 1529 Nicotine 21 MG DAILY 12/25 1155 AC 12/27 TOP 0803 Trazodone HCl 50 MG AT BEDTIME NEED.. 12/24 1830 AC 12/26 PO 2304 Laboratory Tests 12/24 12/24 1526 1515 Chemistry Sodium (137 - 145 mmol/L) 142 Potassium (3.5 - 5.1 mmol/L) 4.2 Chloride (98 - 107 mmol/L) 104 Carbon Dioxide (22 - 30 mmol/L) 25 Anion Gap (5 - 16) 13 BUN (9 - 20 mg/dL) 11 Creatinine (0.7 - 1.2 mg/dL) 0.9 Estimated GFR (>60 ml/min) > 60 BUN/Creatinine Ratio (7 - 25 %) 12.2 Glucose (65 - 99 mg/dL) 99 Hemoglobin A1c (4.2 - 5.8 %) 5.6 Calcium (8.4 - 10.2 mg/dL) 9.5 Total Bilirubin (0.2 - 1.3 mg/dL) 0.5 AST (17 - 59 U/L) 22 ALT (21 - 72 U/L) 31 Alkaline Phosphatase (< 127 U/L) 82 Total Protein (6.3 - 8.2 g/dL) 7.2 Albumin (3.5 - 5.0 g/dL) 4.6 Globulin (1.9 - 4.2 gm/dL) 2.6 Albumin/Globulin Ratio (1.1 - 2.2 %) 1.8 Triglycerides (<150 mg/dL) 370 H Cholesterol (< 200 MG/DL) 245 H LDL Cholesterol, Calc (65 - 129 mg/dL) 145 H HDL Cholesterol (40 - 60 mg/dL) 26 L Cholesterol/HDL Ratio (0.00 - 4.88 %) 9 H Free T4 (0.64 - 1.79 ng/dL) 0.94 Total T3 (0.97 - 1.69 ng/mL) 1.61 TSH &T3 &Free T4 Intrp (0.27 - 4.20 uIU/mL) 4.500 H Hematology CBC w Diff NO MAN DIFF REQ WBC (4.8 - 10.8 /CUMM) 9.0 RBC (4.70 - 6.10 /CUMM) 5.43 Hgb (14.0 - 18.0 G/DL) 15.4 Hct (42 - 52 %) 44.9 MCV (80.0 - 94.0 FL) 82.6 MCH (27.0 - 31.0 PG) 28.3 MCHC (33.0 - 37.0 G/DL) 34.2 RDW (11.5 - 14.5 %) 13.5 Plt Count (130 - 400 /CUMM) 222 MPV (7.4 - 10.4 FL) 8.3 Gran % (42.2 - 75.2 %) 54.1 Lymphocytes % (20.5 - 51.1 %) 37.8 Monocytes % (1.7 - 9.3 %) 5.6 Eosinophils % (0 - 5 %) 2.0 Basophils % (0.0 - 2.0 %) 0.5 Absolute Granulocytes (1.4 - 6.5 /CUMM) 4.9 Absolute Lymphocytes (1.2 - 3.4 /CUMM) 3.4 Absolute Monocytes (0.10 - 0.60 /CUMM) 0.5 Absolute Eosinophils (0.0 - 0.7 /CUMM) 0.2 Absolute Basophils (0.0 - 0.2 /CUMM) 0 Toxicology Urine Opiates Screen (>2000 NG/ML) < 100 Methadone Screen (>300 NG/ML) < 40 Barbiturate Screen (>200 NG/ML) < 60 Ur Phencyclidine Scrn (>25 NG/ML) < 6.00 Amphetamines Screen (>1000 NG/ML) < 100 U Benzodiazepines Scrn (>200 NG/ML) < 85 Urine Cocaine Screen (>300 NG/ML) < 50 Urine Cannabis Screen (>50 NG/ML) < 5.00 Serum Alcohol (<10 MG/DL) < 10.0 Vital Signs Date Time Temp Pulse Resp B/P B/P Pulse O2 O2 Flow FiO2 Mean Ox Delivery Rate 12/27 0751 98.1 86 127/71 12/26 2009 97.9 70 144/80 12/26 1604 72 137/75 12/26 1214 97 119/66 MSE General appearance: good hygiene and grooming; Attitude: cooperative; Eye contact: appropriate; Movement: no psychomotor agitation or slowing; Speech: nl fluency, nl rate/rhythm, nl volume, nl prosody; Mood: "fine" Affect: slightly irritable, flat, appropriate, constricted, non-labile, congruent; Thought process: linear and goal-directed; Thought content: denied SI or HI, no paranoid ideation; Perception: denied hallucinations- auditory, visual, does not appear to be responding to internal stimuli; I/J: limited A/P: Pt with MDD with multiple psychosocial stressors contributing to depression and anxiety. - Abnl EKG: HR 69, QTc 455 ms, SR, RBBB, LPFB, pt notified and encouraged to f/u as outpatient in cardiology -Continue current medication regimen -Encourage integration into the milieu
[2017-12-27 12:02] VITALS: BP 134/66
[2017-12-27 15:42] VITALS: BP 135/68
[2017-12-27 19:49] VITALS: BP 137/81
--- NOTE | 2017-12-27 20:06 | SOCIAL WORKER PROG NOTE PSYCH ---
Social Work Progress Note Progress Note Pt attended Thursday evening group, topic group/psychoeducation. Pt was a positive and interactive participant. Pt states "this is the first time I've been in a group, I needed this".
[2017-12-28 08:05] VITALS: BP 139/85
--- NOTE | 2017-12-28 10:41 | SOCIAL WORKER PROG NOTE PSYCH ---
Social Work Progress Note Progress Note Kavon said he visited with his over the weekend and his daughter. He didn' t get alot of opportunity to talk to his alone about things. He said his has been back and forth about him returning home. He would like to go home and just give his space and work on things. He said his daughter wants them to work things out and wants both parents together. Kavon is open to a family meeting with his today. He called her and she will be available to come in at 12pm today. Talked about discharging today if all goes well. Discussed following up with [facility]PS for aftercare tx and his current therapist. He was also encouraged to attend [facility]. Scheduled an intake at [facility]PS for tomorrow 12/29 at 1:45pm. Med Eval is scheduled with Dr. Darby on 01/05 11am. Family meeting held with Kavon and his . His shared that she has never really been concerned with his safety. He has never done anything to hurt himself. She was concerned though when he started talking more about it in the last month. Kavon said he has had thoughts, but was not suicidal, but happy that he came in and is getting tx. She would like to seperate from Kavon for awhile. Kavon was okay with her response and flexible in how she wanted to do that, but told her he was not going to leave the house and that he was going to be with their daughter. Mrs. Salazar took that news well and didn't seem startled or upset by it. She admitted that she was continuing to work on her recovery. She has been clean for 2 months. She offered to take Kavon home today. She said they would work on the details of the seperation once he was home. Kavon didn't appear upset and more or less seemed to expect this response.
--- NOTE | 2017-12-28 10:54 | CP SOUTH PROGRESS NOTE PSYCH ---
Psych (Inpt) Progress Note Progress Note Include the following elements, when applicable: Involvement in the active treatment of the patient with behavioral observations of the patient and the patient's response to the treatment. Review of the ongoing treatment process in the context of the treatment plan. Indication of how multi-disciplinary staff members are carrying out the treatment plan. Plans for future interventions and recommendations for revision of the treatment plan. Liaison with other physicians/providers. Progress Note: I discussed this patient's progress to date, current mental status, treatment process in the context of the treatment plan, and discharge planning with staff/ team in the daily morning inpatient team meeting. I also met with the patient myself in individual session. A total of 25 minutes was spent with the patient with more than 50% spent in counseling and/or coordination of care. SUBJECTIVE: I think the meds are helping me. Having anxiety attacks. I am going to [facility], my is an alcoholic. I don't have any family here, the stress was too much." OBJECTIVE: Current Medications Sig/Mellisa Start time Last Medication Dose Route Stop Time Status Admin Acetaminophen 650 MG Q6P PRN 12/24 1830 AC 12/26 PO 2134 Al Hydroxide/Mg 30 ML Q4-6 PRN PRN 12/24 183 AC Hydroxide PO Benztropine Mesylate 1 MG Q6P PRN 12/24 1830 AC PO Benztropine Mesylate 1 MG Q6P PRN 12/24 1830 AC IM Escitalopram Oxalate 10 MG 0800 12/25 1200 AC 12/28 PO 0747 Fluticasone 1 SPRAY BID 12/24 2200 AC 12/28 Propionate MERVAT 0747 Gabapentin 300 MG Q6P PRN 12/24 1830 AC 12/27 PO 1257 Haloperidol 5 MG Q6P PRN 12/24 1830 AC PO Haloperidol 5 MG Q6P PRN 12/24 1830 AC IM Lorazepam 2 MG Q6P PRN 12/24 1830 AC IM Magnesium Hydroxide 30 ML AT BEDTIME PRN 12/24 1830 AC PO Nicotine 2 MG Q2P PRN 12/26 1100 AC 12/26 PO 1529 Nicotine 21 MG DAILY 12/25 1155 AC 12/28 TOP 0747 Trazodone HCl 50 MG AT BEDTIME NEED.. 12/24 183 AC 12/27 PO 2250 Vital Signs Date Time Temp Pulse Resp B/P B/P Pulse O2 O2 Flow FiO2 Mean Ox Delivery Rate 12/28 0805 96.9 86 139/85 12/27 1949 97.4 75 137/81 12/27 1542 65 135/68 12/27 1202 71 134/66 ASSESSMENT: This is my first time visiting with this patient. He reports that is doing much better, states he feels ready for discharge. Tolerating the Lexapro well, to good effect. Says that gabapentin taken as needed is helpful for anxiety. Trazodone taken as needed is helpful for sleep at night. After discharge he is planning on continuing to see his outpatient psychologist, Rebekah Rodriguez, in [facility]. Follow-up with his primary care doctor for elevated cholesterol, EKG irregularities (RBBB and Left Posterior Fascicular Block, SR 69, QTc 455), and elevated TSH. Depression:0/10; Anxiety:1/10 (with 10 the worst.) Denies suicidal ideation, homicidal ideation, auditory hallucinations, visual hallucinations, paranoid ideation. Patient states and also believes that he will not kill himself. Reports sleeping well after taking trazodone. His appetite and concentration are improving. His energy and interest levels are reported to be good. Speech is well articulated, goal-directed, average in rate, volume and tone. The patient understands the risks/benefits/side effects of the medication and is agreeable to continue taking them. PLAN: Family meeting this afternoon with his . Anticipate discharge today. Patient will follow-up at [facility] for group therapy and medication management. Private one-on-one therapy with Rebekah Rodriguez. Continue with current management as patient is improving. Continue to provide support and encouragement.
[2017-12-28] MEDS ORDERED: LEXAPRO10 M1 PO (11:03)
[2017-12-28] MEDS ORDERED: TRAZODONE HCL50 M1 PO (11:03)
[2017-12-28] MEDS ORDERED: NICORELIEF2 MG PO (11:03)
[2017-12-28] MEDS ORDERED: GABAPENTIN300 M2 PO (11:03)
--- NOTE | 2017-12-28 11:12 | Patient Discharge Instructions ---
Psych Discharge Inst General Discharge Information Reason for Admission: Anxiety, depression, suicidal ideation. Psy Discharge Primary Diag+ Unspecified depression Psy Discharge Secondary Diag+ RBBB, LPFB,hyperlipidemia psoariatic arthritis Summary Tests/Major Procedures EKG on 12/26/2017: RBBB and Left Posterior Fascicular Block, SR 69, QTc 455 Lab Cholesterol 245 MG/DL H 12/24/17 1526 Cholesterol/HDL Ratio 9 % H 12/24/17 1526 Free T4 0.94 ng/dL 12/24/17 1526 HDL Cholesterol 26 mg/dL L 12/24/17 1526 LDL Cholesterol, Calc 145 mg/dL H 12/24/17 1526 TSH &T3 &Free T4 Intrp 4.500 uIU/mL H 12/24/17 1526 Total T3 1.61 ng/mL 12/24/17 1526 Triglycerides 370 mg/dL H 12/24/17 1526 Studies Pending at DC: None Patient Instructions Contact Information Your Psychiatrist on [facility] was Guera LEON,Gregory * If you are experiencing an emergency related to this hospitalization, please call [phone] to contact the treating psychiatrist or the psychiatrist-on- call. * To Request a copy of your medical records, please contact the Medical Records Department at [phone]. * To request results of studies pending at the time of discharge, please call [phone]. * Continue your Medications until directed to stop by your Healthcare provider. General Medication Information Please continue to take your new medications and your continued home medications , unless otherwise indicated on your discharge medication list, or unless directed by your MD or [employer]BLER to stop them. Special Instructions Diet Regular Activity Normal Other Inst/Recommendations Follow up with your primary care physician. - Tobacco Use Treatment Offered Post DC Medications Offered: Script Given-See Med List Post DC Tobacco Treatment Plan: [facility] Appt Date: 01/06/18 Program Appt Time: 1600 - EtOH/Drug Use D/O Treatment Offered Post DC Medications Offered: Ref Med EtOH/Drug Use D/O Post DC EtOH/SubAbuse [place] Plan: [facility] SubAbuse/Dual IOP Program Appt Date: 12/29/17 Program Appt Time: 1400 Metabolic Screening (x) Not Applicable, patient not on a neuroleptic. OR () Patient on a neuroleptic(s) . Enter below results for Hemoglobin A1C, and lipid panel if obtained during the last 365 days. BMI: 27.300 Blood Pressure: 139/85 Laboratory Results From [facility] (If applicable): Advance Directives Does the Patient have Medical Advance Directives No/Refused further info Does Pt have Psychiatric Advance Directives? No/Per pt req info provid Does Patient have a Designated Surrogate Decision Maker: No Information About Psychiatric Advance Directives Provided? Refused Discharge Plan Post Hospital Treatment Plan: Follow up with your primary care physician for elevated cholesterol, EKG irregularities, and elevated thyroid hormone. Follow up with [facility] for medication management and group therapy. Follow up with your therapist for 1:1 therapy.
--- NOTE | 2017-12-28 11:19 | DISCHARGE SUMMARY REPORT-PSYCH ---
Visit Information Visit Dates/Diagnosis' Admission Date: 12/24/17 Discharge Date: 12/28/17 Reason for Admission: Anxiety, depression, suicidal ideation. Psy Discharge Primary Diag: Unspecified depression Psy Discharge Secondary Diag: RBBB, LPFB,hyperlipidemia, psoariatic arthritis Hospital Course Significant Lab Findings: Lab Cholesterol 245 MG/DL H 12/24/17 1526 Cholesterol/HDL Ratio 9 % H 12/24/17 1526 Free T4 0.94 ng/dL 12/24/17 1526 HDL Cholesterol 26 mg/dL L 12/24/17 1526 LDL Cholesterol, Calc 145 mg/dL H 12/24/17 1526 TSH &T3 &Free T4 Intrp 4.500 uIU/mL H 12/24/17 1526 Total T3 1.61 ng/mL 12/24/17 1526 Triglycerides 370 mg/dL H 12/24/17 1526 EKG on 12/26/17: RBBB & LPFB, Sinus Rhythm 69. Course Complications: None Consultations: Patient was seen for admission history and physical by Dr. Talavera. Please refer to his note for additional information. Allergies: Coded Allergies: morphine (Severe, GI DISTRESS 12/24/17) shrimp (Severe, GI DISTRESS 12/24/17) Hospital Course/TX Response: Patient was monitored on the unit for safety, depression, anxiety, suicidal ideation. He participated in multimodal treatments on the unit. He was medicated with Lexapro for depression and anxiety. Gabapentin was given as needed for anxiety, trazodone as needed for sleep. Today, the day of discharge he states that he feels better, denies depression, reports only a low-level of anxiety, states that he feels safe and ready for discharge. Tolerating the Lexapro well, to good effect. Says that gabapentin taken as needed is helpful for anxiety. Trazodone taken as needed is helpful for sleep at night. After discharge he is planning on continuing to see his outpatient psychologist, Rebekah Rodriguez, in [facility]. Follow-up with his primary care doctor for elevated cholesterol, EKG irregularities (RBBB and Left Posterior Fascicular Block, SR 69, QTc 455), and elevated TSH. Depression:0/10; Anxiety:1/10 (with 10 the worst.) Denies suicidal ideation, homicidal ideation, auditory hallucinations, visual hallucinations, paranoid ideation. Patient states and also believes that he will not kill himself. Reports sleeping well after taking trazodone. His appetite and concentration are improving. His energy and interest levels are reported to be good. Speech is well articulated, goal-directed, average in rate, volume and tone. The patient understands the risks/benefits/side effects of the medication and is agreeable to continue taking them. He reports tolerating his medications well, without complaint. States he feels safe and ready for discharge. Discharge HBIPS - Tobacco Use Treatment Offered Post DC Medications Offered: Script Given-See Med List Post DC Tobacco Treatment Plan: [facility] Appt Date: 01/06/18 Program Appt Time: 1600 - EtOH/Drug Use D/O Treatment Offered Post DC Medications Offered: Ref Med EtOH/Drug Use D/O Post DC EtOH/SubAbuse [place] Plan: [facility] SubAbuse/Dual IOP Program Appt Date: 12/29/17 Program Appt Time: 1400 Metabolic Screening - Screen if on a Neuroleptic Medication - Metabolic screening should include: - Blood Pressure, BMI, Glucose or Hgb A1c, & a - Lipid profile from within the past 365 days. Metabolic Screening ([x]) Not Applicable, patient not on a neuroleptic. OR () Patient on a neuroleptic(s) . Enter below results for Hemoglobin A1C, and lipid panel if obtained during the last 365 days. BMI: 27.300 Blood Pressure: 139/85 Laboratory Results From [facility] (If applicable): Discharge Instructions General Discharge Information Multiple Neuroleptics: ([x]) Not Applicable OR Document below three failed attempts at monotherapy, or a plan to taper to monotherapy, or augmentation of Clozapine. () Discharge Diet Regular Discharge Activity Normal DC Disposition: Patient is returning home. Referrals Ordered Referrals Provider Referral 12/29/17 For Groups: Outpatient Psychiatry [facility] Intake 12/29/17 1:45pm [address] [place], [place] [id number] Provider Referral 01/05/18 For Groups: Outpatient Psychiatry [facility] 01/05/[address] Darby [address] [place], [place] [id number] Prescriptions Continue taking these medications: Fluticasone Propionate (Flonase Allergy Relief) 50 MCG/ACTUATION SPRAY.SUSP 2 [place] In the nose TWICE DAILY Instructions: TWO SPRAYS IN AM, ONE SPRAY IN EVENING Comments: Last Taken:12/28/17 Time:8am Start taking the following new medications: Nicotine (Nicorelief) 2 MG GUM 2 Milligram ORAL EVERY 2 HOURS NEEDED as needed for nicotine cravings Qty = 30 No Refills Comments: Last Taken:12/26/17 Time:3pm Gabapentin (Gabapentin) 300 MG CAPSULE 1 Capsule ORAL EVERY SIX HOURS NEEDED as needed for ANXIETY/AGITATION/ INSOMNIA Qty = 28 No Refills Comments: Last Taken:12/27/17 Time:12pm Escitalopram Oxalate (Lexapro) 10 MG TABLET 1 Tablet ORAL DAILY @8 AM Qty = 14 No Refills Comments: Last Taken:12/28/17 Time:8am Trazodone HCl (Trazodone HCl) 50 MG TABLET 1 Tablet ORAL AT BEDTIME Qty = 14 No Refills Comments: Last Taken:12/27/17 Time:10pm Other Inst/Recommendations Follow up with your primary care physician. Studies Pending at Discharge None Copies To: Lilian LEON,Charly Rousseau
[2017-12-28 12:04] VITALS: BP 148/82
--- NOTE | 2017-12-28 15:36 | SOCIAL WORKER PROG NOTE PSYCH ---
Social Work Progress Note Faxed Referral(s) Referred To: [facility] Transition of Care Documents sent: Health Summary Faxed to: [facility] Fax #: [phone] Faxed by: Althea Gonzalez Date faxed: 12/28/17 Time Faxed: [phone]
== END 2017-12-28 13:00 | DRG 881 ==
LOC: ERH 14:42 → CP SOUTH 18:18 → ERHI 18:18 → ENTRNSPT 20:04 → CP SOUTH 20:13 → CMPTRNSPT 20:19 → CP SOUTH 20:21
PROVIDERS: Physician Assistant Medical
DX: F32.9 Major depressive disorder, single episode, unspecified (principal); L40.50 Arthropathic psoriasis, unspecified; E78.5 Hyperlipidemia, unspecified; I45.10 Unspecified right bundle-branch block
CPT/HCPCS: 80307; 93005; 93010; G0480